=== PATIENT | female | born 1985 | race Hispanic/Latino ===

== ENCOUNTER 2018-05-05 18:05 | Emergency (ER) | payer SELFPAY ==
[~2018-05-05] VITALS: Ht 157.5 cm; Wt 89.4 kg
[2018-05-05 18:36] VITALS: BP 122/71
== END 2018-05-05 18:39 | disposition home or self-care (01) ==
LOC: FSED 18:05
DX: M54.2 Cervicalgia (principal); M62.838 Other muscle spasm
CPT/HCPCS: 99282